=== PATIENT | male | born 2000 | race Caucasian/White ===

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

== ENCOUNTER 2024-03-16 18:44 | Emergency (ER) | payer OTHER, SELFPAY ==
[2024-03-16 18:49] VITALS: BP 143/81; PULSE 94; RESP 24; TEMP 37.2; O2SAT 98
--- NOTE | 2024-03-16 19:26 | ED.GENADUL_ITS ---
Discharge Plan Disposition Patient Disposition: Home Condition: Stable Discharge Details Clinical Impression: Respiratory infection Primary Care Provider: None,None ED Provider: Mike Zuñiga Home Meds and New Rx's Prescriptions: New doxycycline hyclate 100 mg tablet 100 mg PO BID Qty: 14 0RF Discharge Instructions Additional Instructions: Your x-ray did not show concerning findings in your viral swab was negative. Take the antibiotic as prescribed Follow-up with your primary care provider or express care if not improving within a week If you feel more ill, have severe worsening shortness of breath or new symptoms such as persistent vomiting return to the emergency department for reevaluation HPI General Mode of arrival: ambulatory . Date/Time Provider Initiated Documentation: 03/16/24 18:57 . Limitations to Documentation: no limitations . Information obtained by: patient . History of Present Illness 24 year old M presents to the emergency department with the chief complaint of cough, described as moderate, Patient reports no radiation. Patient started experiencing this day(s) (10) and it has been constant. No relieving factors improve symptom(s), No exacerbating factors reported . Patient notes cough; denies chest pain and fever/chills. Related Data Home Medications ?Medication ?Instructions ?Recorded ?Confirmed doxycycline hyclate 100 mg tablet 100 mg PO BID #14 tabs 03/16/24 Previous Rx's ?Medication ?Instructions ?Recorded doxycycline hyclate 100 mg tablet 100 mg PO BID #14 tabs 03/16/24 Allergies Allergy/AdvReac Type Severity Reaction Status Date / Time amoxicillin AdvReac Unknown RASH Verified 03/16/24 18:54 General Stated Complaint: RespSymp ANNABEL: 3 Review of Systems All systems reviewed & are unremarkable except as noted in HPI and below Constitutional Constitutional: Denies chills, Denies fever(s) and Denies weakness Cardiovascular Cardiovascular: Denies chest pain and Reports dyspnea Respiratory Respiratory: Reports cough and Reports dyspnea Gastrointestinal Gastrointestinal: Denies abdominal pain, Denies nausea and Denies vomiting Musculoskeletal Musculoskeletal: Denies joint swelling Neurologic Neurologic: Denies weakness Endocrine Endocrine: Denies cold intolerance and Denies heat intolerance Exam Resp Auscultation: clear to auscultation bilaterally, no rhonchi and no wheezes Course Vital Signs Vital signs: Vital Signs Temperature 37.2 C 03/16/24 18:49 Pulse 94 H 03/16/24 18:49 Respiratory Rate 24 03/16/24 18:49 Blood Pressure 143/81 H 03/16/24 18:49 Pulse Oximetry 98 03/16/24 18:49 Temperature 37.2 C 03/16/24 18:49 Temperature Source Temporal Artery Scan 03/16/24 18:49 Pulse 94 H 03/16/24 18:49 Respiratory Rate 24 03/16/24 18:49 Blood Pressure 143/81 H 03/16/24 18:49 Blood Pressure Position Sitting 03/16/24 18:49 Pulse Oximetry 98 03/16/24 18:49 Oxygen Delivery Method Room Air 03/16/24 18:49 Oxygen Flow Rate 0 03/16/24 18:49 Pain Level 0 03/16/24 18:49 Medical Decision Making 24-year-old male who denies any chronic medical problems comes in with 10 days of productive cough. He denies any high fevers, recent travel, vomiting. He says that he is coughing fits refill short of breath. He is well-appearing speaking full sentences with intermittent dry cough during my exam. He has clear lung sounds, no JVD, no murmurs. I suspect respiratory infection, will check a Fluvid and a chest x-ray. Patient stable, Fluvid negative and on my read of the x-ray it is negative. Given he said 10 days of symptoms I will cover him with antibiotics for possible developing pneumonia versus bronchitis. He will follow-up with his PCP if not improving and return precautions given Differential Diagnosis Differential Diagnosis: COVID, flu, pneumonia, bronchitis Quality:SDOH Health Related Social Needs: No Data to Display PFSH All Active Problems (Updated 03/16/24 @ 20:58 by Mike Zuñiga MD) Respiratory infection (Acute) Surgical History (Updated 12/03/17 @ 14:36 by [employer] [place]) Myringotomy w/ PE (pressure equalizing) tubes (02/22/03) Arthroplasty of knee 05/31/15; RIGHT KNEE Family History Mother Hearing loss Essential hypertension GREAT GRANDFATHER Myocardial infarction FAMILY HISTORY Lung cancer Uterine cancer Father No problems noted. Sister Asthma Brother Asthma Grandfather Essential hypertension Heart disease Grandfather Heart disease Grandmother Essential hypertension Grandmother No problems noted. Social History Smoking/Tobacco Use Status: Never Smoking risk assessment performed?: Yes Drug use: Never Do you feel safe in your relationship?: Yes
[2024-03-16 19:27] VITALS: BP 132/75; PULSE 81; RESP 22; TEMP 36.9; O2SAT 96
[2024-03-16 19:53] LABS: COVID-19 PCR Negative (Negative); Influenza A PCR Negative (Negative); Influenza B PCR Negative (Negative); RSV PCR Negative (Negative)
[2024-03-16 20:03] LABS: Source Nasopharynx
--- NOTE | 2024-03-16 20:56 | DI.RAD_ITS ---
Exam(s) XR CHEST 2V PA LATERAL EXAM: XR CHEST 2V PA LATERAL CLINICAL HISTORY: cough TECHNIQUE: 2D digital imaging was performed of the chest. Two images were obtained. PA and lateral views were obtained. COMPARISON: There are no priors for comparison. FINDINGS: MEDIASTINUM: Normal. HEART: Normal. PULMONARY VASCULATURE: Normal. LUNGS: Clear. PLEURAL SPACE: No pleural effusion or pneumothorax. BONE:Within normal limits for the patient's age. OTHER FINDINGS:Normal. IMPRESSION: No acute pulmonary findings. DATA REPOSITORY: RADIATION DOSE DELIVERED:
[2024-03-16] MEDS: Doxycycline Hyclate 100 MG CAP PO (21:09)
--- NOTE | 2024-03-16 21:52 | DI.VRAD_ITS ---
PROCEDURE INFORMATION: Exam: XR Chest Exam date and time: 03/16/2024 8:40 PM Age: 24 years old Clinical indication: Cough TECHNIQUE: Imaging protocol: Radiologic exam of the chest. Views: 2 views. COMPARISON: No relevant prior studies available. FINDINGS: Lungs: Lungs are adequately inflated and symmetric. No focal consolidation or evidence of pulmonary edema. Pleural spaces: No pleural effusion. No pneumothorax. Heart/Mediastinum: Cardiomediastinal contours within normal limits. Bones/joints: No acute osseous finding. IMPRESSION: No acute findings. Dictated and Authenticated by: Eloy Aranda MD. Orderin Zara Mckeon MD
== END 2024-03-16 21:11 | disposition home or self-care (01) ==
PROVIDERS: Emergency Provider Emergency Medicine
DX: J98.8 Other specified respiratory disorders (principal); R05.1 Acute cough
CPT/HCPCS: 87637; 99283; 71046